=== PATIENT | female | born 1955 | race Caucasian/White ===

== ENCOUNTER 2017-06-23 00:42 | Inpatient (IN) | payer BC, OTHER ==
[2017-06-23 02:15] LABS: #Eosinphils 0.1 thou/uL (0.0-0.7); #Lymphocytes 1.5 thou/uL (1.20-3.40); #Monocytes 0.5 thou/uL (0.11-0.59); #Neutrophils 5.7 thou/uL (1.40-6.50); %Basophils 0.4 % (0.0-1.0); %Eosinophils 0.7 % (0.0-10.0); %Lymphocytes 19.4 % (21.0-51.0); %Monocytes 5.8 % (0.0-10.0); %Neutrophils 73.6 % (42.0-75.0); Hemoglobin 13.8 g/dL (12.0-16.0); Mean Corpuscular HGB CONC 33.7 g/dL (32.0-36.0); Mean Corpuscular Hemoglobin 32.1 pg (27.0-31.0); Mean Corpuscular Volume 95.3 fl (81.0-99.0); Mean Platelet Volume 6.7 fL (7.4-10.4); Platelet Count 195 thou/uL (130-400); RBC Distribution Width 11.6 % (11.5-14.5); Red Blood Cell (RBC) Count 4.28 mill/uL (4.20-5.40); White Blood Cell (WBC) Count 7.7 thou/uL (4.8-10.8)
[2017-06-23 02:23] LABS: Prothrombin Time 13.6 SEC (12.0-14.7)
[2017-06-23 02:38] LABS: ALT (SGPT) 15 U/L (8-55); AST (SGOT) 20 U/L (5-34); Albumin 3.9 g/dL (3.4-4.8); Alkaline Phosphatase 64 U/L (40-150); Anion Gap 12 mmol/L (10-20); BUN (Urea Nitrogen) 15 mg/dL (9.8-20.1); Calc. Creatinine Clearance 0 mL/min (70-130); Carbon Dioxide 27 mmol/L (23-31); Chloride 105 mmol/L (98-107); Estimated GFR-MDRD 71; Globulin 2.9 g/dL (2.4-3.5); Glucose 181 mg/dL (80-115); Protein, Total 6.8 g/dL (6.0-8.3); Sodium 140 mmol/L (136-145)
[2017-06-23] MEDS ORDERED: Ondansetron HCl/PF 4 MG/2 ML Vial IVP PRN (03:03)
[2017-06-23] MEDS ORDERED: Acetaminophen 325 MG TAB PO PRN ×2 (03:03→03:13)
[2017-06-23] MEDS ORDERED: Ondansetron ODT 4 MG TAB SL PRN (03:03)
[2017-06-23] MEDS ORDERED: Morphine 4 MG/ML VIAL IV PRN (03:04)
[2017-06-23] MEDS ORDERED: HumaLOG 300 UNITS/3 ML VIAL SC PRN (03:13)
[2017-06-23] MEDS ORDERED: Ondansetron ODT 4 MG TAB PO PRN (03:13)
[2017-06-23] MEDS ORDERED: Dextrose 5% in Water 1,000 ML IV PRN (03:13)
[2017-06-23] MEDS ORDERED: Dextrose 50% Abboject 50 ML SYRINGE SLOW IVP PRN (03:13)
[2017-06-23] MEDS ORDERED: Sodium Chloride 0.9% 1,000 ML IV SCH (03:13)
[2017-06-23 03:25] VITALS: BMI 38.9
--- NOTE | 2017-06-23 06:02 | HP-2 ---
TIME AND DATE OF SERVICE: 2:00 a.m. on 06/23/2017. CODE STATUS: FULL CODE. PRIMARY CARE PHYSICIAN: Dr. Hanson. ATTENDING: Dr. Stock. RESIDENT: All Cruz M.D. HISTORIAN: Patient. SPECIALISTS: Urologist in [place], Dr. Anderson. CHIEF COMPLAINT: Flank pain and nausea and vomiting. HISTORY OF PRESENT ILLNESS: Ms. Hannah Belle is a 62-year-old female with past medical history of k idney stones, type 2 diabetes, hypertension, hypothyroidism who presents with left flank pain. The p ain is described as sharp and constant and began at 4:30 p.m. on 06/22/2017. The pain is associated with nausea and vomiting. Nothing has improved the pain. Nothing makes the pain worse. The patient denies any fevers, chills, chest pain, palpitations, dyspnea, diarrhea, dysuria or increased urinary frequency. She was transferred from [place] for ureterolithiasis. Patient has had 2 episodes of nephrolithiasis in the past with 5 mm stones that required lithotripsy. Patient has a urologist t brittany she sees in [place]. In [place], she was given morphine, Rocephin and Zofran. PAST MEDICAL HISTORY: 1. Kidney stones. 2. Hypothyroidism. 3. Hypertension. 4. Type 2 diabetes. 5. Depression. PAST SURGICAL HISTORY: 1. Lithotripsy x2. 2. Cholecystectomy. 3. . ALLERGIES: SULFA. MEDICATIONS: Patient is unsure of the doses of her home medications, but they include: 1. Pravastatin. 2. Levothyroxine. 3. Victoza. 4. Glipizide. 5. Paxil. 6. Allopurinol. 7. Toujeo. SOCIAL HISTORY: Patient denies tobacco, alcohol, or drug use. REVIEW OF SYSTEMS: Twelve point review of systems including general, eyes, ENT, respiratory, CV, GI, , skin, musculoskeletal, neuro and psych were all reviewed and were unremarkable unless otherwise stated in the HPI. PHYSICAL EXAMINATION: VITAL SIGNS: Blood pressure 130/72, pulse 79, respiratory rate 16, temperature 98.4, pulse ox 95% on room air. Current weight 113 kilograms. GENERAL: The patient is alert and oriented x3, in no acute distress, morbidly obese, appropriately i nteractive. EYES: Pupils equal, round, reactive to light and accommodation. Extraocular muscles intact. Conjun ctiva within normal limits. ENT: Tympanic membranes pearly garcia without bulging or erythema. Nasal mucosa and oropharynx within normal limits. NECK: Supple, without lymphadenopathy or thyromegaly. CARDIOVASCULAR: Regular rate and rhythm. No murmurs or gallops. RESPIRATORY: Normal effort, no retractions. LUNGS: Clear to auscultation bilaterally. SKIN: Warm and dry without cyanosis or lesions. ABDOMEN: Soft, nontender, bowel sounds x4. No mass or distention. No left-sided or right-sided CVA tenderness. EXTREMITIES: No clubbing, cyanosis or pitting edema. MUSCULOSKELETAL: Structure and tone within normal limits. Full range of motion. NEUROLOGIC: No focal deficits. Sensation within normal limits. PSYCHIATRIC: Appropriate. LABORATORY DATA: The labs from [place], white blood cell count 7.1, hemoglobin 14.7, hematocrit 44.6, platelets 214,000. Sodium 142, potassium 4.8, chloride 104, carbon dioxide 30, BUN 15, creati nine 0.9, glucose 177, calcium 8.6, total protein 7.4, albumin 4.0, AST 21, ALT 20, alkaline phosphat ase 60, total bilirubin 1.3. UA was significant for trace ketones, 100 protein, too numerous to coun t red blood cells, 6-14 white blood cells, 1+ bacteria and 3-5 squamous epithelial cells. IMAGING: In [place], abdominal CT showed a 5 mm stone in the left UVJ as well as left hydroneph rosis and hydroureter. ASSESSMENT AND PLAN: 1. Ureterolithiasis. Admit to medical. No CVA tenderness. A 5 mm stone in the left UVJ with left hydronephrosis and left hydroureter. Make the patient n.p.o. Maintenance fluids normal saline at 15 0 mL an hour. Consult Urology in the morning. Kidney function is normal, we will try a trial of Roger max with pain management ensuring urine. 2. Type 2 diabetes. Accu-Cheks and sliding scale insulin. 3. Hypertension. Home medications 4. Hypothyroidism. Home medications. 5. Code status: Full code. 6. Deep venous thrombosis prophylaxis, sequential compression devices. 7. Activity: ad tonja, walking program. 8. Diet n.p.o. Disposition and length of hospital stay, 2 days. Symptomatic medications will be provided. History and physical exam as well as management discussed with Dr. Stock.
[2017-06-23] MEDS ORDERED: Tamsulosin HCl 0.4 MG CAP PO SCH (09:00)
[2017-06-23 10:56] VITALS: BP 114/68; TEMP 98
[2017-06-23] MEDS ORDERED: traMADol HCl 50 MG TAB PO PRN (11:09)
--- NOTE | 2017-06-23 12:53 | DIS-2 ---
DATE OF ADMISSION: 06/23/2017 DATE OF DISCHARGE: 06/23/2017 RESIDENT: Jose Vega DO ADMITTING ATTENDING: Fuentes Stock M.D. DISCHARGE ATTENDING: Fuentes Stock M.D. CONSULTS: None. PROCEDURES: None. PRIMARY DIAGNOSIS: Urolithiasis. SECONDARY DIAGNOSES: Type 2 diabetes, hypertension, hypothyroidism. DISCHARGE MEDICATIONS: Glimepiride 4 mg 1 p.o. b.i.d., levothyroxine 40 mcg p.o. daily, paroxetine 20 mg p.o. daily, Victoza 0.6 mg subcutaneous daily, potassium citrate 50 mg p.o. daily, allopurinol 100 mg p.o. daily, enalapril 10 mg p.o. b.i.d., pravastatin 40 mg p.o. daily, Toujeo 52 units subcu daily, and tramadol 50 mg p.o. q.6 h. p.r.n. for pain. DISCONTINUED MEDICATIONS: None. HOSPITAL COURSE: The patient was admitted with left flank pain and a known history of kidney stones. A CT showed an approximately 5 mm stone at the left UVJ. The patient was given morphine for pain control, put on IV fluids, and given a trial of Flomax. By mid morning, the patient's pain had resolved and no longer needed pain control. It was determined that the patient had passed the stone and was good to be discharged home with followup with PCP and her established urologist in [place]. As recommended to the patient that she continue to strain her urine to collect the stone. She was also given tramadol as needed for any subsequent pain. DISPOSITION: Stable. DISCHARGE INSTRUCTIONS: 1. Location: Home. 2. Diet: Heart healthy and low carb. 3. Activity: ad tonja. 4. Followup: With PCP, Dr. Hanson, within a week and urologist, Dr. Anderson within 1 week. [facility]
== END 2017-06-23 14:02 | disposition home or self-care (01) | DRG 694 ==
LOC: ERS 00:42 → T4-A 01:48
PROVIDERS: ADMIT Family Medicine; ATTEND Family Medicine
DX: N13.2 Hydronephrosis with renal and ureteral calculous obstruction (principal); E03.9 Hypothyroidism, unspecified; E11.9 Type 2 diabetes mellitus without complications; I10 Essential (primary) hypertension; F32.9 Major depressive disorder, single episode, unspecified
CPT/HCPCS: 36415; 36416; 80053; 85025; 85610; 99284; A4216